=== PATIENT | female | born 1995 | race Two or more races ===

== ENCOUNTER 2018-02-05 16:54 | Outpatient (CLI) | payer OTHER ==
[2018-02-06] MEDS ORDERED: CYCLOBENZAPRINE5 MG PO (12:46)
== END 2018-02-06 14:47 | disposition home or self-care (01) ==
LOC: OBS/DEL 16:54
DX: O26.892 Other specified pregnancy related conditions, second trimester (principal); M62.830 Muscle spasm of back; Z34.82 Encounter for supervision of other normal pregnancy, second trimester